=== PATIENT | female | born 1940 | race Caucasian/White ===

== ENCOUNTER 2016-03-02 11:34 | Day surgery (SDC) | payer MEDICARE, OTHER ==
[~2016-03-02] VITALS: Ht 165.1 cm; Wt 56.0 kg
[2016-03-02 12:47] VITALS: Ht 165.1 cm; Wt 56.0 kg
[2016-03-02] MEDS ORDERED: THYROID MED PO (12:53)
[2016-03-02] MEDS ORDERED: HTN MED PO (12:53)
[2016-03-02 14:25] VITALS: BP 152/71; PULSE 69; RESP 26
[2016-03-02] MEDS ORDERED: PROPOFOL 40 ML ONE (15:17)
[2016-03-02 15:55] VITALS: BP 159/75; PULSE 70; RESP 21
--- NOTE | 2016-03-03 09:55 | GILP ---
DATE OF PROCEDURE: 03/02/2016 DATE: 03/02/2016 NAME OF PROCEDURE: Colonoscopy to cecum. SURGEON: Christopher Rios MD. PREOPERATIVE DIAGNOSIS(ES): ____ POSTOPERATIVE DIAGNOSIS(ES): ____ HISTORY AND INDICATIONS: The patient is being evaluated for colorectal cancer screening and unexpla ined abdominal pain. PREMEDICATION: Monitored anesthesia care by the anesthesiologist. INSTRUMENT USED: Olympus colonoscope. PREPARATION: Adequate. TECHNIQUE: After informed consent, with the patient/relatives understanding the procedure, its indic ations potential risks and complications, including but not limited to: allergic reaction, bleeding, perforation, infection, missed lesions and after all pertinent questions were answered to the patie nt's satisfaction, the patient/relatives signed the witnessed informed consent. Following this, premedication was administered slowly IV push by under careful cardiovascular and re spiratory monitoring with pulse oximetry, automatic blood pressure and monitor and storage bin tender. Once the sedativ e effect was achieved, the patient was placed in the left lateral decubitus position, digital rectal examination was performed. The colonoscope was then introduced and advanced under visual control th roughout all segments of the colon including: the rectum, sigmoid, descending colon, splenic flexure , transverse colon, hepatic flexure, ascending colon and finally reaching the cecum which was clearl y identified by transillumination, finger indentation and the ileocecal valve. Careful examination o f the mucosa of the lower gastrointestinal tract both on insertion as well as withdrawal of the inst rument disclosed the following findings: Rectal Examination: No evidence of perirectal disease, no masses. Colonic Mucosa: The colonic mucosa is intact and unremarkable throughout. The ileocecal valve was c learly identified and appears unremarkable. No additional abnormalities are noted with exception of small internal hemorrhoids of no clinical significance. The instrument was then withdrawn, the patient tolerated the procedure well and was transferred out of the Endoscopy Suite awake and in good condition to continue recovery under observation. IMPRESSION: 1. Normal colonoscopy to cecum. 2. Small internal hemorrhoids of no clinical significance. PLAN: The patient will be followed up as an outpatient. High fiber diet is recommended and Hemoccu lt stool testing is advisable and screening colonoscopy in 10 years is recommended. Dictated By: CHRISTOPHER RIOS MS/NTS Conf#: [id number] DID#: [id number]
--- NOTE | 2016-03-03 10:03 | GILP ---
DATE OF PROCEDURE: 03/02/2016 DATE: 03/02/2016 NAME OF PROCEDURE: Esophagogastroduodenoscopy with biopsies. SURGEON: Christopher Rios MD PREOPERATIVE DIAGNOSIS: ____ POSTOPERATIVE DIAGNOSIS: ____ HISTORY AND INDICATIONS: The patient is being evaluated for abdominal pain and dyspepsia. PREMEDICATION: Monitored anesthesia care by anesthesiologist. INSTRUMENT USED: Olympus panendoscope. TECHNIQUE: After informed consent, with the patient/relatives understanding the procedure, its indic ations, potential risks and complications, including but not limited to: allergic reaction, bleeding , perforation or infection, and after all pertinent questions were answered to the patients satisfac tion, the patient/relatives signed witnessed informed consent. Following this, premedication was administered slowly IV push under careful cardiovascular and respi ratory monitoring with pulse oximetry, automatic blood pressure and personnel monitor. Once the sedative effect was achieved the patient was place in the left lateral decubitus, the panen doscope was introduced and advanced under visual control. Careful examination of the upper gastrointestinal tract, both on insertion as well as withdrawal of the instrument disclosed the following findings: ESOPHAGUS: The mucosa of the entire esophagus appears within normal limits. There is no evidence of esophagitis, varices, neoplasm or stricture. No hiatal hernia identified. STOMACH: Upon entrance to the stomach, air was insufflated, the gastric clemente distended normally. T here is erythema and edema of the mucosa of a mild degree in the antrum of the stomach. Biopsies we re obtained to rule out H. pylori infection. PYLORUS: The pylorus appears patent and within normal limits, with no evidence of gastric outlet obs truction. DUODENUM: The duodenal mucosa was carefully examined in the duodenal bulb as well as the second port ion of the duodenum and appears unremarkable with no evidence of duodenitis, ulcer or neoplasm. The instrument was then withdrawn, the patient tolerated the procedure well and was transfer out of the endoscopy suite awake, and in good condition to continue recovery under observation IMPRESSION: Mild gastritis, rule out H. pylori infection, biopsies obtained. PLAN: The patient will be treated with a short course of PPIs. Further recommendation will depend on review of biopsies as well as patient's clinical course. Dictated By: CHRISTOPHER RIOS MS/DEA Conf#: [id number] DID#: [id number]
== END 2016-03-02 15:44 | disposition home or self-care (01) ==
LOC: GIL 11:34
PROVIDERS: ATTEND Internal Medicine Gastroenterology
DX: Z12.11 Encounter for screening for malignant neoplasm of colon (principal); K29.50 Unspecified chronic gastritis without bleeding; K64.8 Other hemorrhoids; I10 Essential (primary) hypertension; E03.9 Hypothyroidism, unspecified
CPT/HCPCS: 43239; 88305; 88312; G0121